=== PATIENT | female | born 1995 | race Caucasian/White ===

== ENCOUNTER 2017-07-27 13:05 | Emergency (ER) | payer BC ==
[2017-07-27 13:11] VITALS: BP 124/72; PULSE 81; TEMP 98.1; BMI 30.2
[2017-07-27] MEDS ORDERED: diazePAM 5 MG TABLET PO ONE (13:35)
[2017-07-27] MEDS ORDERED: KETOROLAC TROMETHAMINE 15 MG/ML VIAL IM ONE (13:35)
--- NOTE | 2017-07-27 13:35 | PDOC ---
History of Present Illness - General Chief Complaint: Pain Stated Complaint: NECK PAIN Time Seen by Provider: 07/27/17 13:35 History Source: Patient Exam Limitations: No Limitations - History of Present Illness Initial Comments: 07/27/17 14:43 CHIEF COMPLAINT: Neck pain HISTORY OF PRESENT ILLNESS: This is an otherwise healthy 22-year-old female presents for evaluation of neck pain. She reports that she felt a "crack" in her neck while she was sleeping. Since then, she has had neck pain, especially with turning her head to the right. She denies stiffness and clarifies that range of motion of her neck is limited only by pain. She denies fevers/chills, headache, numbness/tingling of the extremities, or any other symptoms. Vital signs on arrival are unremarkable. REVIEW OF SYSTEMS: GENERAL/CONSTITUTIONAL: No fever or chills. No weakness. No weight change. HEAD, EYES, EARS, NOSE AND THROAT: No change in vision. No ear pain or discharge. No sore throat. CARDIOVASCULAR: No chest pain or palpitations. RESPIRATORY: No cough, wheezing, or shortness of breath. GASTROINTESTINAL: No nausea, vomiting, diarrhea or constipation. GENITOURINARY: No dysuria, frequency, or change in urination. MUSCULOSKELETAL: See HPI. SKIN: No rash or easy bruising. NEUROLOGIC: No headache, vertigo, loss of consciousness, or loss of sensation. ALLERGIC/IMMUNOLOGIC: No hives or skin allergy. No latex allergy. PHYSICAL EXAM: GENERAL: The patient is awake, alert, and fully oriented, in no acute distress. HEAD: Normal with no signs of trauma. ENT: Pupils equal, round and reactive to light, extraocular movements intact, sclera anicteric, conjunctiva clear. Able to turn head to left 90d, turn head to right about 45d (limited by pain), and touch chin to chest and raise head to ceiling. No midline cervical vertebral tenderness. LUNGS: Clear to auscultation bilaterally. Normal excursion. No respiratory distress or use of accessory muscles. CV: RRR, S1/S2, no MRG. Cap refill < 2 sec. ABDOMEN: Soft, non-distended, non-tender. EXTREMITIES: Normal range of motion, no edema. NEUROLOGICAL: Normal speech, normal gait. CN II-XII grossly intact. PSYCH: Normal mood, normal affect. SKIN: Warm, dry, normal turgor, no rashes or lesions noted. Past History - Past Medical History Allergies/Adverse Reactions: Allergies Allergy/AdvReac Type Severity Reaction Status Date / Time hydroxyzine [From Atarax] AdvReac Verified 07/27/17 13:11 Home Medications: Ambulatory Orders Diazepam [Valium] 2 mg PO BID PRN #10 tablet MDD 2 tabs 07/27/17 Naproxen [Naprosyn] 500 mg PO BID #14 tablet 07/27/17 Asthma: Yes COPD: No Other medical history: ECZEMA - Suicide/Smoking/Psychosocial Hx Smoking History: Never smoked Hx Alcohol Use: Yes Drug/Substance Use Hx: No *Physical Exam - Vital Signs Last Vital Signs Temp Pulse Resp BP Pulse Ox 98.1 F 81 20 124/72 97 07/27/17 13:08 07/27/17 13:08 07/27/17 13:08 07/27/17 13:08 07/27/17 13:08 Medical Decision Making - Medical Decision Making 07/27/17 14:45 A/P: 22 year old female with neck pain. No headache or neurologic symptoms to suggest SAH, no fevers/chills or other symptoms to suggest meningitis. Suspect torticollis. 1. Pgu 2. Cervical neck xray 3. Toradol 15mg IM, diazepam 5mg po 4. Reassess 07/27/17 16:53 Pain and range of motion improved. Will dc with NSAIDs and muscle relaxers. Return precautions reviewed. *DC/Admit/Observation/Transfer Diagnosis at time of Disposition: Torticollis, acute - Discharge Dispostion Disposition: HOME Condition at time of disposition: Improved Admit: No - Prescriptions Prescriptions: Diazepam [Valium] 2 mg PO BID PRN #10 tablet MDD 2 tabs PRN Reason: neck pain Naproxen [Naprosyn] 500 mg PO BID #14 tablet - Referrals Referrals: Pedro Chen MD [Staff Physician] - 3 days - Patient Instructions Printed Discharge Instructions: DI for Torticollis Additional Instructions: -Apply warm compresses to the painful site -Take Naproxen and diazepam as prescribed -Follow up with primary care next week (referral enclosed) -Return here for fever, worsening pain, headache, or any other concerning symptoms - Post Discharge Activity
[2017-07-27] MEDS ORDERED: diazePAM 5 MG TABLET ONE (13:52)
[2017-07-27] MEDS ORDERED: KETOROLAC TROMETHAMINE 15 MG/ML VIAL ONE (13:53)
== END 2017-07-27 17:08 | disposition home or self-care (01) ==
LOC: JERFT 13:05 → JER 13:05
PROC: 3E0233Z Introduction of Anti-inflammatory into Muscle, Percutaneous Approach (ICD-10-PCS; principal; 2017-07-27)
DX: M43.6 Torticollis (principal)
CPT/HCPCS: 72050-TC; 84703; 99282-25

== ENCOUNTER 2023-08-10 09:44 | Emergency (ER) | payer BC, OTHER ==
[2023-08-10 09:55] VITALS: RESP 18; TEMP 98.2; BMI 32.1
[2023-08-10] MEDS ORDERED: ACETAMINOPHEN INJECTION 100 ML IVPB ONE (12:02)
[2023-08-10 12:10] LABS: PH,URINE 5.5 (5.0-8.0); URINE APPEARANCE CLEAR; URINE BILIRUBIN NEGATIVE (NEGATIVE); URINE COLOR YELLOW; URINE GLUCOSE (UA) NEGATIVE (NEGATIVE); URINE KETONE 1+ (NEGATIVE); URINE LEUK ESTERASE NEGATIVE (NEGATIVE); URINE NITRITE NEGATIVE (NEGATIVE); URINE PROTEIN TRACE (NEGATIVE); URINE UROBILINOGEN 0.2 mg/dL (0.2-1.0)
[2023-08-10 12:14] LABS: HCG,QUALITATIVE URINE Negative
[2023-08-10 12:17] LABS: INR 1.08 (0.83-1.09); PROTHROMBIN TIME (PATIENT) 12.5 SEC (9.7-13.0)
[2023-08-10 12:20] LABS: ACTIVATED PTT 30.5 SECONDS (25.2-36.5)
[2023-08-10 12:24] LABS: BASO % 0.4 % (0-2.0); HEMATOCRIT 38.4 % (32.4-45.2); HEMOGLOBIN 12.5 GM/dL (10.7-15.3); LYMPH % 39.8 % (8-40); MCH 27.4 pg (25.7-33.7); MCHC 32.5 g/dl (32.0-36.0); MEAN CELL VOLUME 84.3 fl (80-96); MEAN PLT VOLUME 7.5 fl (7.5-11.1); MONO % 7.9 % (3.8-10.2); NEUT % 50.9 % (42.8-82.8); PLATELET COUNT 324 10^3/uL (134-434); RBC 4.55 M/mm3 (3.60-5.2); RDW 12.8 % (11.6-15.6); WHITE BLOOD COUNT 6.2 K/mm3 (4.0-10.0)
[2023-08-10] MEDS: ACETAMINOPHEN 1000 MG/100 ML BAG IVPB ONE (12:46)
[2023-08-10] MEDS: ACETAMINOPHEN 500 MG TABLET (FP) PO ONE (12:48)
[2023-08-10 12:53] LABS: CHLORIDE 107 mmol/L (98-107); POTASSIUM 4.1 mmol/L (3.5-5.1); SODIUM 137 mmol/L (136-145)
[2023-08-10 12:55] LABS: ALBUMIN 3.9 g/dl (3.4-5.0); ANION GAP 7 mmol/L (4-13); CALCIUM 8.6 mg/dL (8.5-10.1); CO2 24 mmol/L (21-32); GLUCOSE,RANDOM 80 mg/dL (74-106)
[2023-08-10 12:58] LABS: CREATININE 0.8 mg/dL (0.55-1.3); SGOT/AST 15 U/L (15-37); SGPT/ALT 20 U/L (13-61)
[2023-08-10 13:00] LABS: BILIRUBIN,TOTAL 0.4 mg/dL (0.2-1); TOT PROT 8.2 g/dl (6.4-8.2)
[2023-08-10 13:01] LABS: ALK PHOS 44 U/L (45-117)
[2023-08-10 16:17] VITALS: BP 114/75; PULSE 84
== END 2023-08-10 16:17 | disposition home or self-care (01) ==
LOC: JER 09:44
DX: N93.9 Abnormal uterine and vaginal bleeding, unspecified (principal); R10.2 Pelvic and perineal pain
CPT/HCPCS: 36415; 76830-TC; 80053; 81003; 84702; 84703; 85025; 85610; 85730; 86850; 86900; 86901; 87086; 99284-25